=== PATIENT | female | born 1930 | race Caucasian/White ===

== ENCOUNTER 2019-06-15 19:06 | Emergency (ER) | payer MEDICARE, OTHER ==
[~2019-06-15] VITALS: Ht 162.6 cm; Wt 74.8 kg
[2019-06-15 19:47] LABS: Basophils # (auto) 0.1 uL; Basophils % (auto) 0.6 % (0.0-2.0); Eosinophils # (auto) 0.2 uL; Eosinophils % (auto) 2.3 % (0.0-7.0); Hematocrit 34.1 % (36.0-46.0); Hemoglobin 11.4 g/dL (12.2-16.2); Lymphocytes # (auto) 2.7 uL; Lymphocytes % (auto) 26.5 % (10.0-50.0); Mean Corpuscular Hgb Conc. 33.6 g/dL (32.0-36.0); Mean Corpuscular Volume 92.2 fL (80.0-100.0); Monocytes # (auto) 0.9 uL; Monocytes % (auto) 8.5 % (0.0-12.0); Neutrophils # (auto) 6.3 uL; Neutrophils % (auto) 62.1 % (37.0-80.0); Nucleated Red Blood Cells % 0.1 %; Platelet Count (auto) 242 10^3/uL (140-450); Red Blood Cells 3.69 10^6/uL (4.0-5.20); Red Cell Distribution Width 13.4 % (11.8-14.3); White Blood Cell 10.1 10^3/uL (4.4-10.8)
[2019-06-15 19:55] LABS: INR 0.99 (0.9-1.15); Partial Thromboplastin Time 24.6 sec (23.64-32.05)
[2019-06-15 20:01] LABS: Potassium 3.9 mmol/L (3.5-5.1)
[2019-06-15 20:03] LABS: Albumin 3.5 g/dL (3.4-5.0)
[2019-06-15] MEDS ORDERED: LIDOCAINE VISCOUS 2% 15ML UD MT ONE (20:15)
[2019-06-15 20:56] LABS: BUN/Creatinine Ratio 19.8; Bilirubin, Total 0.2 mg/dL (0.2-1.0); Total Protein 6.6 g/dL (6.4-8.2)
[2019-06-15 21:35] VITALS: BP 91/55
== END 2019-06-15 21:40 | disposition home or self-care (01) ==
LOC: EDBD 19:06 → ER 19:12 → EDBD 19:12 → ER 21:40
DX: R04.0 Epistaxis (principal); J01.00 Acute maxillary sinusitis, unspecified; I10 Essential (primary) hypertension
CPT/HCPCS: 30901; 36415; 80053; 85025; 85610; 85730; 93005

== ENCOUNTER 2019-06-18 12:22 | Emergency (ER) | payer MEDICARE, OTHER ==
[~2019-06-18] VITALS: Ht 154.9 cm; Wt 90.7 kg
[2019-06-18 12:40] VITALS: BP 152/70
== END 2019-06-18 13:24 | disposition home or self-care (01) ==
LOC: ER 12:25
DX: R04.0 Epistaxis (principal); I10 Essential (primary) hypertension

== ENCOUNTER 2020-04-18 15:00 | Inpatient (IN) | payer MEDICARE, OTHER ==
[~2020-04-18] VITALS: Ht 157.5 cm; Wt 86.0 kg
[2020-04-18] MEDS ORDERED: SODIUM CHLORIDE 0.9% 1,000 ML IV ONE (15:45)
[2020-04-18 16:05] LABS: Basophils # (auto) 0 10 ^3/uL (0-0.2); Eosinophils # (auto) 0 10 ^3/uL (0-0.8); Hemoglobin 17.8 g/dL (12.2-16.2); Monocytes # (auto) 0.9 10 ^3/uL (0-1.3); Monocytes % (auto) 5.8 % (0.0-12.0)
[2020-04-18 16:07] LABS: Basophils % (auto) 0.2 % (0.0-2.0); Hematocrit 52.8 % (36.0-46.0); Lymphocytes # (auto) 0.6 10 ^3/uL (0.4-5.4); Lymphocytes % (auto) 3.6 % (10.0-50.0); Mean Corpuscular Hgb Conc. 33.7 g/dL (32.0-36.0); Mean Corpuscular Volume 92.2 fL (80.0-100.0); Neutrophils # (auto) 14.1 10 ^3/uL (1.6-8.6); Neutrophils % (auto) 90.4 % (37.0-80.0); Nucleated Red Blood Cells % 0.3 %; Platelet Count (auto) 238 10^3/uL (140-450); Red Blood Cells 5.73 10^6/uL (4.0-5.20); Red Cell Distribution Width 12.8 % (11.8-14.3); White Blood Cell 15.6 10^3/uL (4.4-10.8)
[2020-04-18 16:19] LABS: INR 1.03 (0.9-1.15); Partial Thromboplastin Time 25.4 sec (23.0-31.2)
[2020-04-18 16:36] LABS: Albumin 4.2 g/dL (3.4-5.0); Anion Gap 11 (5-15); BUN/Creatinine Ratio 21.4; Blood Urea Nitrogen 18 mg/dL (7-18); Calcium 9.9 mg/dL (8.5-10.1); Carbon Dioxide 29 mmol/L (21-32); Chloride 95 mmol/L (98-107); GFR African American 82 mL/min; GFR Non-African American 68 mL/min; Glucose 182 mg/dL (74-106); Sodium 135 mmol/L (136-145)
[2020-04-18 16:39] LABS: Alanine Aminotransferase 17 U/L (13-56); Alkaline Phosphatase 61 U/L (45-117); Aspartate Aminotransferase 20 U/L (15-37); Bilirubin, Total 0.6 mg/dL (0.2-1.0); Total Protein 8.1 g/dL (6.4-8.2)
[2020-04-18 19:15] LABS: Urine Bacteria NONE SEEN /hpf (None Seen); Urine Blood 1+ /uL (Negative); Urine Mucus FEW (None Seen); Urine Specific Gravity 1.023 (1.001-1.035); Urine WBC 2 /hpf (0 - 5)
[2020-04-18] MEDS ORDERED: ONDANSETRON HCL 4 MG/2 ML VIAL IV PRN (19:30)
[2020-04-18] MEDS ORDERED: ACETAMINOPHEN 500 MG TAB PO PRN (19:30)
[2020-04-18] MEDS ORDERED: MORPHINE SULF INJ 2 MG/ML SYRINGE 1ML IV PRN ×2 (19:30)
[2020-04-18] MEDS ORDERED: IPRATROPIUM BROM 0.5 MG/2.5ML INH SOL NEB PRN (19:30)
[2020-04-18] MEDS ORDERED: LABETALOL HCL 5 MG/ML 4ML SYRINGE IV PRN (19:30)
[2020-04-18] MEDS ORDERED: NITROGLYCERIN 0.4 MG SL TAB SL PRN (19:30)
[2020-04-18] MEDS ORDERED: ALBUTEROL SULF 2.5 MG/0.5ML(0.5%) NEB SOLN NEB PRN (19:30)
[2020-04-18 19:31] VITALS: BP 150/84
[2020-04-18] MEDS: SOD CHL 0.9%/ KCL 20MEQ 1,000 ML IV SCH (19:40)
--- NOTE | 2020-04-18 21:15 | NUR ---
TELE ADMIT FROM ER Assumed care of patient from ER. Patient is alert and oriented and currently on 4L NC. No S/S of distress or SOB noted at this time. Patient is on tele #39 running Sinus Tach @101. Patient oriented to hospital policies and room. POC discussed in detailed with patient, all questions answered and patient verbalized understanding. Bed in lowest position,locked, side rails up x2. Call light within reach. Patient is encouraged to call for assistance. Will continue to monitor Q1hr and PRN.
[2020-04-18] MEDS: PANTOPRAZOLE 40 MG TAB PO SCH (22:00)
[2020-04-18] MEDS: metroNIDAZOLE 500MG/100ML 100 ML IV SCH (22:08)
[2020-04-18 22:25] VITALS: BP 145/77
[2020-04-19] VITALS (7 sets, daily range): BP systolic 114–145; BP diastolic 60–77
[2020-04-19] MEDS ORDERED: LISI-646 PO (00:41)
[2020-04-19] MEDS ORDERED: ALEN70TA2 PO (00:41)
[2020-04-19] MEDS ORDERED: SIMV10TA84 PO (00:41)
[2020-04-19] MEDS ORDERED: FER325T PO (00:41)
[2020-04-19] MEDS ORDERED: ESCI20TA PO (00:41)
[2020-04-19] MEDS: SOD CHL 0.9%/ KCL 20MEQ 1,000 ML IV SCH ×2 (05:30→12:50)
[2020-04-19 05:39] LABS: Basophils # (auto) 0 10 ^3/uL (0-0.2); Eosinophils # (auto) 0 10 ^3/uL (0-0.8); Hematocrit 44.5 % (36.0-46.0); Hemoglobin 14.9 g/dL (12.2-16.2); Lymphocytes # (auto) 0.8 10 ^3/uL (0.4-5.4); Lymphocytes % (auto) 5.2 % (10.0-50.0); Mean Corpuscular Hemoglobin 31.1 pg (28.0-32.0); Mean Corpuscular Hgb Conc. 33.4 g/dL (32.0-36.0); Mean Corpuscular Volume 93.3 fL (80.0-100.0); Monocytes # (auto) 1.6 10 ^3/uL (0-1.3); Monocytes % (auto) 9.8 % (0.0-12.0); Neutrophils # (auto) 13.7 10 ^3/uL (1.6-8.6); Platelet Count (auto) 211 10^3/uL (140-450); Red Blood Cells 4.77 10^6/uL (4.0-5.20); Red Cell Distribution Width 13.1 % (11.8-14.3); White Blood Cell 16.1 10^3/uL (4.4-10.8)
[2020-04-19] MEDS: metroNIDAZOLE 500MG/100ML 100 ML IV SCH (05:41)
[2020-04-19 05:57] LABS: Albumin 3.2 g/dL (3.4-5.0); Calcium 8.2 mg/dL (8.5-10.1); Potassium 3.6 mmol/L (3.5-5.1)
[2020-04-19 05:59] LABS: BUN/Creatinine Ratio 59.7; Bilirubin, Total 0.4 mg/dL (0.2-1.0); Total Protein 6.1 g/dL (6.4-8.2)
--- NOTE | 2020-04-19 07:28 | NUR ---
CARE ENDORSED TO DAY SHIFT RN
--- NOTE | 2020-04-19 07:30 | NUR ---
Opening Shift Note Assumed care of patient, awake and alert. No S/S of distress/SOB or pain. Instructed on POC and to call for assist PRN, will continue to monitor for changes Q1hr and PRN. Bed in lowest position top two side rails up.
--- NOTE | 2020-04-19 07:30 | NUR ---
Opening Shift Note Assumed care of patient, awake and alert. No S/S of distress/SOB or pain. Instructed on POC and to call for assistance PRN, will continue to monitor for changes Q1hr and PRN. Bed in lowest position, top two side rails up, call light within reach.
[2020-04-19] MEDS ORDERED: cefTRIAXone 1GM/50ML D5W 50 ML IV SCH (09:00)
[2020-04-19] MEDS: PANTOPRAZOLE 40 MG TAB PO SCH (10:00)
--- NOTE | 2020-04-19 10:55 | NUR ---
Nutrition Consult/assessment Note please see attached link for complete assessment [employer] needs ABW 65 [id number] kcals (23-25 kcal/kgABW), Est Protein needs: 65-71 gms/day (1.0-1.1 gm/kgABW) Will continue to monitor and reassess prn. Addendum: 04/19/20 at [address] Amended: Links added.
[2020-04-19] MEDS ORDERED: LINEZOLID 600MG/300ML 300 ML IV ONE (13:00)
[2020-04-19] MEDS ORDERED: MORPHINE SULF INJ 2 MG/ML SYRINGE 1ML IV ONE (13:15)
[2020-04-19] MEDS ORDERED: MORPHINE SULF INJ 2 MG/ML SYRINGE 1ML IV PRN (13:15)
--- NOTE | 2020-04-19 13:30 | NUR ---
PAIN PT CONTINUES TO COMPLAIN OF SHOULDER PAIN. DR KEARNS WAS MADE AWARE. NEW ORDER RECEIVED FOR PAIN MEDICATION. MORPHINE GIVEN ORDERED.
--- NOTE | 2020-04-19 14:00 | NUR ---
MD AT BEDSIDE DR KEARNS WAS MADE AWARE OF SLIGHT SWELLING NOTED TO LEFT SHOULDER. DR KEARNS ASSESSED PT, AND SAW THE SLIGHT SWELLING TO LEFT SHOULDER. NO NEW ORDERS RECEIVED.
[2020-04-19] MEDS: PIPERACILLIN-TAZOB 3.375GM 100 ML IV SCH ×2 (16:48→21:59)
[2020-04-19] MEDS: SUCRALFATE 1 GM/10 ML ORAL SUSP PO SCH ×2 (16:58→21:59)
--- NOTE | 2020-04-19 19:10 | NUR ---
OPENING SHIFT NOTE Assumed care of patient from day shift RN. Patient is alert and oriented and currently on 4L NC. No S/S of distress or SOB noted at this time. POC discussed in detailed with patient, all questions answered and patient verbalized understanding. Bed in lowest position,locked, side rails up x2. Call light within reach,ambulates with assistance to the bathroom. Bed alarm on and patient is encouraged to call for assistance. Will continue to monitor Q1hr and PRN.
--- NOTE | 2020-04-19 19:10 | NUR ---
CHANGE OF SHIFT REPORT GIVEN TO CONTRACT DESIGNER RN. PT STABLE AT THIS TIME.
[2020-04-19] MEDS: PANTOPRAZOLE 40 MG/10 ML VIAL INJ IV SCH (21:59)
[2020-04-20] MEDS: LINEZOLID 600MG/300ML 300 ML IV SCH ×3 (00:01→21:30)
--- NOTE | 2020-04-20 00:50 | NUR ---
Respiratory note: PT SEEN AND ASSESSED FOR PRN MED NEB TX AT 0050. TX NOT INDICATED AT THIS TIME. PT DENIES HAVING ANY RESPIRATORY DISTRESS. HR 71 RR 16 SP02 96% ON 3L NASAL CANNULA. PT AWARE TO CALL FOR RT IF ANY DISTRESS OCCURS.
[2020-04-20] MEDS: SOD CHL 0.9%/ KCL 20MEQ 1,000 ML IV SCH ×3 (01:30→21:29)
[2020-04-20 05:00] VITALS: BP 117/57
[2020-04-20] MEDS: PIPERACILLIN-TAZOB 3.375GM 100 ML IV SCH ×3 (05:42→21:30)
[2020-04-20 05:52] LABS: Basophils # (auto) 0 10 ^3/uL (0-0.2); Basophils % (auto) 0.1 % (0.0-2.0); Eosinophils # (auto) 0.1 10 ^3/uL (0-0.8); Eosinophils % (auto) 0.7 % (0.0-7.0); Hematocrit 38.8 % (36.0-46.0); Hemoglobin 12.8 g/dL (12.2-16.2); Lymphocytes # (auto) 0.8 10 ^3/uL (0.4-5.4); Lymphocytes % (auto) 7.2 % (10.0-50.0); Mean Corpuscular Hemoglobin 31.1 pg (28.0-32.0); Mean Corpuscular Hgb Conc. 32.8 g/dL (32.0-36.0); Mean Corpuscular Volume 94.7 fL (80.0-100.0); Monocytes # (auto) 1.1 10 ^3/uL (0-1.3); Monocytes % (auto) 9.4 % (0.0-12.0); Neutrophils # (auto) 9.4 10 ^3/uL (1.6-8.6); Neutrophils % (auto) 82.6 % (37.0-80.0); Platelet Count (auto) 162 10^3/uL (140-450); Red Cell Distribution Width 13.5 % (11.8-14.3); White Blood Cell 11.4 10^3/uL (4.4-10.8)
[2020-04-20] MEDS: SUCRALFATE 1 GM/10 ML ORAL SUSP PO SCH ×4 (06:26→21:53)
[2020-04-20 06:31] LABS: Potassium 3.7 mmol/L (3.5-5.1)
[2020-04-20 06:41] LABS: Albumin 2.7 g/dL (3.4-5.0); BUN/Creatinine Ratio 61.7; Bilirubin, Total 0.6 mg/dL (0.2-1.0); Calcium 8.1 mg/dL (8.5-10.1); Total Protein 5.3 g/dL (6.4-8.2)
--- NOTE | 2020-04-20 07:26 | NUR ---
CARE ENDORSED TO HARJINDER CRUZ
--- NOTE | 2020-04-20 07:30 | NUR ---
Opening Shift Note Assuming care of patient at this time. Patient is awake and alert. Patient denies pain. Patient shows no signs or symptoms of distress or shortness of breath. Bed is locked and lowered with side rails up x2. Instructed patient on the plan of care for today and to call for assistance as needed. Call light within reach. Will continue to round hourly and as needed.
--- NOTE | 2020-04-20 08:30 | NUR ---
Respiratory note: PT SPO2 98% ON 3L NC. BREATH SOUNDS ARE CLEAR T/O. HEART RATE 77. RESPIRATORY RATE 16. NO RESPIRATORY DISTRESS NOTED AT THIS TIME.
[2020-04-20] MEDS ORDERED: FLUMAZENIL 0.1 MG/ML INJ 10ML MDV IV ONE (08:45)
[2020-04-20] MEDS ORDERED: LIDOCAINE VISCOUS 2% 15ML UD ONE (08:45)
[2020-04-20] MEDS ORDERED: SODIUM CHLORIDE LOCK 10 ML ONE (08:45)
[2020-04-20] MEDS ORDERED: NALOXONE HCL 0.4 MG/ML VIAL ONE (08:45)
[2020-04-20] MEDS ORDERED: diphenhdrAMINE HCL 50 MG/1 ML VL ONE (08:46)
[2020-04-20] MEDS ORDERED: MIDAZOLAM HCL 5 MG/ML-1ML VIAL ONE (08:46)
[2020-04-20 09:00] VITALS: BP 137/82
[2020-04-20] MEDS: PANTOPRAZOLE 40 MG/10 ML VIAL INJ IV SCH ×2 (10:45→21:29)
[2020-04-20 13:00] VITALS: BP 124/73
--- NOTE | 2020-04-20 15:20 | NUR ---
Patient to OR Patient taken to OR at this time. No distress noted.
[2020-04-20] MEDS: fentaNYL CITRATE 100 MCG/2 ML VL ONE ×2 (16:10→16:11)
--- NOTE | 2020-04-20 17:18 | NUR ---
Opening shift note Assumed care of patient. Patient is awake, alert, and oriented X 4. No S/S of respiratory distress noted and patient denies pain at this time. Bed in lowest position,locked, side rails up x2, call light is within reach. Ambulatory with assistance to the bathroom. Patient is encouraged to call for assistance. POC discussed with the patient; all questions answered. Patient verbalized understanding. Will continue to monitor Q1hr and PRN. Addendum: 04/21/20 at 0330 by INA BO RN RN Time of opening shift note 1917
--- NOTE | 2020-04-20 17:50 | NUR ---
Patient Back on Unit Patient back on unit at this time. No distress noted. Patient on 3L of oxygen via nasal cannula at this time.
--- NOTE | 2020-04-20 19:08 | NUR ---
Respiratory note: ASSESSMENT FOR PRN MED NEB TX, HR 88, SPO2 96% ON 3L NC, RR 16, BS DIMINISHED. MED NEB TX NOT INDICATED AT THIS TIME, PT IN NO RESPIRATORY DISTRESS. PT MADE AWARE TO HAVE RT PAGED IF NEEDED, WILL CONTINUE TO MONITOR.
[2020-04-20 20:00] VITALS: BP 135/72
--- NOTE | 2020-04-20 21:00 | NUR ---
IV removal/insertion Patient accidently removed IV R. AC, Catheter is fully intact. No bleeding at the site. Pressure dressing applied. New IV access obtained via clean sterile technique by inserting 22 gauge catheter at R. wrist. IV secured properly. No trauma to site. Patient tolerated procedure well.
[2020-04-20 22:00] VITALS: BP 135/72
--- NOTE | 2020-04-21 01:02 | NUR ---
Opening Shift Note Assumed care of patient, awake, alert an oriented x 4. Respirations are even and non-labored on 3LNC. No S/S of distress/SOB or pain. Bed is in the lowest and locked position with side rails up x 2, bed alarm on and call light within reach. Instructed on POC and to call for assist PRN, will continue to monitor for changes Q1hr and PRN. Addendum: 04/22/20 at 0103 by SHANI PRETTY RN RN WRONG TIME; SHOULD BE 04/21 AT 1930
[2020-04-21 05:00] VITALS: BP 118/60
[2020-04-21 06:03] LABS: Basophils # (auto) 0 10 ^3/uL (0-0.2); Basophils % (auto) 0.2 % (0.0-2.0); Eosinophils # (auto) 0.2 10 ^3/uL (0-0.8); Eosinophils % (auto) 2.7 % (0.0-7.0); Hematocrit 38.7 % (36.0-46.0); Hemoglobin 12.7 g/dL (12.2-16.2); Lymphocytes # (auto) 1.1 10 ^3/uL (0.4-5.4); Lymphocytes % (auto) 14.5 % (10.0-50.0); Mean Corpuscular Hemoglobin 31.3 pg (28.0-32.0); Mean Corpuscular Hgb Conc. 32.7 g/dL (32.0-36.0); Mean Corpuscular Volume 95.6 fL (80.0-100.0); Monocytes # (auto) 0.9 10 ^3/uL (0-1.3); Monocytes % (auto) 12.3 % (0.0-12.0); Neutrophils # (auto) 5.4 10 ^3/uL (1.6-8.6); Neutrophils % (auto) 70.3 % (37.0-80.0); Platelet Count (auto) 143 10^3/uL (140-450); Red Blood Cells 4.04 10^6/uL (4.0-5.20); Red Cell Distribution Width 13.4 % (11.8-14.3); White Blood Cell 7.6 10^3/uL (4.4-10.8)
[2020-04-21] MEDS: PIPERACILLIN-TAZOB 3.375GM 100 ML IV SCH (06:10)
[2020-04-21 06:20] LABS: Potassium 3.4 mmol/L (3.5-5.1)
[2020-04-21 06:23] LABS: Calcium 8.5 mg/dL (8.5-10.1)
[2020-04-21] MEDS: SUCRALFATE 1 GM/10 ML ORAL SUSP PO SCH ×4 (06:30→22:48)
--- NOTE | 2020-04-21 07:25 | NUR ---
Opening Shift Note Assumed care of patient, awake, alert an oriented x 4. Respirations are even and non-labored on 3LNC. No S/S of distress/SOB or pain. Bed is in the lowest and locked position with side rails up x 2, bed alarm on and call light within reach. Instructed on POC and to call for assist PRN, will continue to monitor for changes Q1hr and PRN.
[2020-04-21] MEDS: SOD CHL 0.9%/ KCL 20MEQ 1,000 ML IV SCH ×2 (07:30→17:01)
[2020-04-21 09:11] VITALS: BP 149/77
--- NOTE | 2020-04-21 10:05 | NUR ---
Dr. Pratt at bedside. Explained POC with patient and answered all questions. Will continue to monitor.
--- NOTE | 2020-04-21 10:59 | NUR ---
Assessment Patient is an 89-year-old female who is alert and oriented. Prior to admission patient lived home alone and functioned with assistance from her caregiver Padmini. Per patient she has friends who help her as well when needed. Patient feels safe returning home and has great family support. Per patient she has a walker and cane for home use. Per patient she will return home to her prior living arrangements post discharge and family will transport her home. Patient states she does not received home health services at this time. Informed patient she has the right to participate in all discharge planning. Patient verbalized understanding and agreed to discharge plan. Addendum: 04/21/20 at 1059 by JEAN CLAUDE GOMEZ Amended: Links added.
[2020-04-21] MEDS: PANTOPRAZOLE 40 MG/10 ML VIAL INJ IV SCH ×2 (11:18→22:48)
[2020-04-21] MEDS: LINEZOLID 600MG/300ML 300 ML IV SCH (11:19)
--- NOTE | 2020-04-21 11:46 | NUR ---
Nutrition Followup Note Wt 81.0 kg Pt was alert and oriented at time of rounds. Pt reports appetite is good, denies GI issues. Pt reports eating clear liquid diet this morning, pt would like to try to advance diet and feels she would be able to tolerate diet. Per RN nutrition note pt with 25% po intake of CLD x 2 on 04/20. Per MD order pt diet has advanced to full liquid. Will monitor pt tolerance of new diet and if diet continues to advance Est Energy needs ABW 65 [id number] kcals (23-25 kcal/kgABW), Est Protein needs: 65-71 gms/day (1.0-1.1 gm/kgABW) Will continue to monitor and reassess prn. Labs: Creat 0.53L, Alb 2.7L BM: Last BM was prior to admission per pt Skin: BS 20 low risk, full details in behavioral health care manager note PES Altered nutrition related lab values r.t current chronic medical condition aeb elev BUN mild hypoalb Decreased nutrient needs r/t adiposity aeb pt`s high BMI of 32.0 kgm2 Comments: 1) Continue to advance diet as medically feasible 2) refer to [facility] on DC 3) continue current plan of care Expected Outcomes/Goals: pt will have improved labs pt will get > 75% of needs F/u high 2-3 days
[2020-04-21 12:05] VITALS: BP 141/80
[2020-04-21] MEDS ORDERED: AZITHROMYCIN 500MG/ 250ML 250 ML IV ONE (13:15)
--- NOTE | 2020-04-21 13:33 | NUR ---
D/C Planning Regarding social service consult for home health safety evaluation, physical therapy, medication management and vitals. Patient redirect me to her daughter Lexi for any discharge planning. Information and choice letter was given to Lexi. Lexi requested [facility] that doctor recommended. Faxed clinical information to [facility]. Per Augustin with [facility] patient has been accepted and service to start within 24-48hrs upon d.c day.
--- NOTE | 2020-04-21 16:00 | NUR ---
ASSESSED PT FOR PRN MED NEB PT ON 3 L NC WITH SPO2 96%, NO SOB NO RESPIRATORY DISTRESS NOTED. WILL CONTINUE TO MONITOR PT.
[2020-04-21 16:22] VITALS: BP 126/75
--- NOTE | 2020-04-21 18:50 | NUR ---
Respiratory note: PT ASSESSED FOR PRN MED NEB TX. HR 79, RR 20, SPO2 96% ON 3L NC. NO S/S OF ANY RESPIRATORY DISTRESS NOTED. ADVISED PT TO CALL IF TX IS NEEDED.
[2020-04-21 21:57] VITALS: BP 135/71
--- NOTE | 2020-04-21 22:00 | NUR ---
IV removal - RIGHT WRIST IV LEAKING IV DC'd with sterile technique, catheter fully intact. Pressure dressing applied to site. Patient tolerated procedure well.
--- NOTE | 2020-04-21 22:30 | NUR ---
IV insertion IV access obtained, via clean sterile technique by inserting 22 gauge catheter at LEFT HAND after 3 attempts. IV secured properly. No trauma to site. Patient tolerated procedure well.
[2020-04-22 00:59] VITALS: BP 135/71
[2020-04-22] MEDS: SOD CHL 0.9%/ KCL 20MEQ 1,000 ML IV SCH ×2 (03:31→13:30)
[2020-04-22 05:05] VITALS: BP 131/70
[2020-04-22 05:30] LABS: Basophils # (auto) 0 10 ^3/uL (0-0.2); Basophils % (auto) 0.7 % (0.0-2.0); Eosinophils # (auto) 0.1 10 ^3/uL (0-0.8); Eosinophils % (auto) 2.3 % (0.0-7.0); Hemoglobin 12.8 g/dL (12.2-16.2); Lymphocytes # (auto) 1.1 10 ^3/uL (0.4-5.4); Lymphocytes % (auto) 19.8 % (10.0-50.0); Mean Corpuscular Hemoglobin 31.3 pg (28.0-32.0); Mean Corpuscular Hgb Conc. 33.6 g/dL (32.0-36.0); Mean Corpuscular Volume 93.1 fL (80.0-100.0); Monocytes # (auto) 0.6 10 ^3/uL (0-1.3); Monocytes % (auto) 11.5 % (0.0-12.0); Neutrophils # (auto) 3.5 10 ^3/uL (1.6-8.6); Neutrophils % (auto) 65.7 % (37.0-80.0); Nucleated Red Blood Cells % 0.1 %; Platelet Count (auto) 164 10^3/uL (140-450); Red Blood Cells 4.08 10^6/uL (4.0-5.20); Red Cell Distribution Width 12.9 % (11.8-14.3); White Blood Cell 5.4 10^3/uL (4.4-10.8)
[2020-04-22 05:54] LABS: Albumin 2.8 g/dL (3.4-5.0); Calcium 8.4 mg/dL (8.5-10.1); Potassium 3.5 mmol/L (3.5-5.1)
[2020-04-22 05:56] LABS: Bilirubin, Total 0.6 mg/dL (0.2-1.0); Total Protein 5.7 g/dL (6.4-8.2)
[2020-04-22] MEDS: SUCRALFATE 1 GM/10 ML ORAL SUSP PO SCH ×3 (06:34→16:40)
--- NOTE | 2020-04-22 07:20 | NUR ---
Opening Shift Note Assumed care of patient, awake, alert and oriented x 4. Respirations are even and non-labored on 3LNC. No S/S of distress/SOB or pain. Bed is in the lowest and locked position with side rails up x 2, bed alarm on and call light within reach. Instructed on POC and to call for assist PRN, will continue to monitor for changes Q1hr and PRN.
[2020-04-22 08:56] VITALS: BP 157/85
[2020-04-22] MEDS ORDERED: AZITHROMYCIN 500MG/ 250ML 250 ML IV SCH (10:00)
[2020-04-22] MEDS: PANTOPRAZOLE 40 MG/10 ML VIAL INJ IV SCH (10:43)
[2020-04-22 13:00] VITALS: BP 129/59
[2020-04-22 16:37] VITALS: BP 150/75
--- NOTE | 2020-04-22 16:58 | NUR ---
D/C Planning Per social service consult for home oxygen. Faxed clinical information to [employer]. Per Margy Moralez order has been received and they will deliver portable oxygen to bedside and concentrate oxygen to home between 5:30-7:30.
--- NOTE | 2020-04-22 17:27 | NUR ---
Oxygen delivered Margy with [employer] at bedside. Discussed use of equipment and answered all questions.
--- NOTE | 2020-04-22 19:42 | NUR ---
Patient D/C'd Received report from Mirlande CRUZ. All d/c paper work explained by Mirlande CRUZ and this RN at bedside. Patient's daughter is here for patient. Patient is AOx4 with no s/s of distress. Patient IV d/c'd with catheter intact and dressing applied to site by this RN. No trauma to site noted. Tele monitor discharged and sent to tele bone density technician as well by this RN. Patient left unit with oxygen and all belonging via wheelchair by Mirlande CRUZ.
== END 2020-04-22 19:42 | disposition home health service (06) | DRG 871 ==
LOC: EDBD 15:00 → ER 15:00 → TELE 15:01 → TELE-CENTR 21:15
PROVIDERS: ADMIT Nurse Practitioner Acute Care; ATTEND Family Medicine
PROC: 0DB68ZX Excision of Stomach, Via Natural or Artificial Opening Endoscopic, Diagnostic (ICD-10-PCS; 2020-04-20)
PROC: 0DB88ZX Excision of Small Intestine, Via Natural or Artificial Opening Endoscopic, Diagnostic (ICD-10-PCS; 2020-04-20)
PROC: 0DB58ZX Excision of Esophagus, Via Natural or Artificial Opening Endoscopic, Diagnostic (ICD-10-PCS; principal; 2020-04-20 16:03)
DX: A41.9 Sepsis, unspecified organism (principal); J69.0 Pneumonitis due to inhalation of food and vomit; K85.92 Acute pancreatitis with infected necrosis, unspecified; J96.01 Acute respiratory failure with hypoxia; K21.01 Gastro-esophageal reflux disease with esophagitis, with bleeding; K22.11 Ulcer of esophagus with bleeding; K26.4 Chronic or unspecified duodenal ulcer with hemorrhage; K29.71 Gastritis, unspecified, with bleeding; K29.81 Duodenitis with bleeding; I13.0 Hypertensive heart and chronic kidney disease with heart failure and stage 1 through stage 4 chronic kidney disease, or unspecified chronic kidney disease; J98.11 Atelectasis; D50.0 Iron deficiency anemia secondary to blood loss (chronic); E86.0 Dehydration; E87.6 Hypokalemia; E66.9 Obesity, unspecified; K44.9 Diaphragmatic hernia without obstruction or gangrene; N18.30 Chronic kidney disease, stage 3 unspecified; K56.41 Fecal impaction; F41.9 Anxiety disorder, unspecified; Z68.34 Body mass index [BMI] 34.0-34.9, adult; Z90.710 Acquired absence of both cervix and uterus; Z79.899 Other long term (current) drug therapy
CPT/HCPCS: 36415; 36600; 43239; 71045; 74176; 80048; 80053; 81001; 82150; 82270; 82805; 83036; 83690; 83880; 84484; 85025; 85610; 85730; 96365; C9113; G0378; J0696; J2250; J2543; J3490

== ENCOUNTER → 2020-05-27 | Outpatient (CLI) | payer MEDICARE, OTHER ==
[~2020-05-27] MED LIST: ALEN70TA2 PO; ESCI20TA PO; FER325T PO; LISI-646 PO; SIMV10TA84 PO
[2020-05-27 12:37] LABS: Basophils # (auto) 0 10 ^3/uL (0-0.2); Basophils % (auto) 0.7 % (0.0-2.0); Eosinophils # (auto) 0 10 ^3/uL (0-0.8); Eosinophils % (auto) 0.6 % (0.0-7.0); Hematocrit 41.1 % (36.0-46.0); Hemoglobin 13.8 g/dL (12.2-16.2); Lymphocytes # (auto) 0.8 10 ^3/uL (0.4-5.4); Lymphocytes % (auto) 13.4 % (10.0-50.0); Mean Corpuscular Hemoglobin 30.4 pg (28.0-32.0); Mean Corpuscular Hgb Conc. 33.5 g/dL (32.0-36.0); Mean Corpuscular Volume 90.7 fL (80.0-100.0); Monocytes # (auto) 0.6 10 ^3/uL (0-1.3); Monocytes % (auto) 10.9 % (0.0-12.0); Neutrophils # (auto) 4.3 10 ^3/uL (1.6-8.6); Neutrophils % (auto) 74.4 % (37.0-80.0); Nucleated Red Blood Cells % 0.1 %; Platelet Count (auto) 182 10^3/uL (140-450); Red Blood Cells 4.53 10^6/uL (4.0-5.20); Red Cell Distribution Width 13.1 % (11.8-14.3); White Blood Cell 5.8 10^3/uL (4.4-10.8)
[2020-05-27 13:06] LABS: Albumin 3.4 g/dL (3.4-5.0); BUN/Creatinine Ratio 15.6; Calcium 8.8 mg/dL (8.5-10.1)
[2020-05-27 13:08] LABS: Bilirubin, Total 0.6 mg/dL (0.2-1.0); Total Protein 6.4 g/dL (6.4-8.2)
[2020-05-27 13:19] LABS: Potassium 2.8 mmol/L (3.5-5.1)
== END | disposition home or self-care (01) ==
LOC: LAB 12:00
PROVIDERS: ATTEND Internal Medicine Gastroenterology
DX: K44.9 Diaphragmatic hernia without obstruction or gangrene (principal); D64.9 Anemia, unspecified
CPT/HCPCS: 36415; 80053; 85025; 85652